=== PATIENT | female | born 1995 | race Caucasian/White ===

== ENCOUNTER 2019-01-14 15:32 | Emergency (ER) | payer OTHER ==
[~2019-01-14] VITALS: Ht 152.4 cm; Wt 47.7 kg
[2019-01-14 15:39] VITALS: BP 131/82
[2019-01-14] MEDS: IBUPROFEN 600 MG TABLET PO ONE (16:22)
[2019-01-14] MEDS: ACETAMINOPHEN 500 MG TABLET PO ONE (16:22)
== END 2019-01-14 17:35 | disposition home or self-care (01) ==
LOC: EMS 15:38
DX: J02.9 Acute pharyngitis, unspecified (principal); R59.9 Enlarged lymph nodes, unspecified; Z88.0 Allergy status to penicillin

== ENCOUNTER 2019-01-30 20:16 | Emergency (ER) | payer OTHER ==
[~2019-01-30] VITALS: Ht 152.4 cm; Wt 46.8 kg
[2019-01-30 20:47] LABS: APPEARANCE,URINE CLOUDY (CLEAR); BILIRUBIN,URINE NEGATIVE (NEGATIVE); GLUCOSE, URINE (UA) NEGATIVE (NEGATIVE); KETONES,URINE NEGATIVE (NEGATIVE); LEUKOCYTE ESTERASE ,URINE MODERATE (NEGATIVE); NITRATE,URINE NEGATIVE (NEGATIVE); OCCULT BLOOD,URINE LARGE (NEGATIVE); PH,URINE 5.5 (5.0-8.0); PROTEIN,URINE NEGATIVE (NEGATIVE); UROBILINOGEN,URINE 0.2 mg/dL (<=1.0)
[2019-01-30 21:40] LABS: BACTERIA,URINE Moderate /HPF (None Seen); SQUAMOUS EPITHELIAL CELL,UR Moderate /LPF (None Seen)
[2019-01-30 23:10] VITALS: BP 136/74
== END 2019-01-30 23:20 | disposition home or self-care (01) ==
LOC: EMS 20:17
DX: B37.3 Candidiasis of vulva and vagina (principal); N39.0 Urinary tract infection, site not specified; Z88.0 Allergy status to penicillin
CPT/HCPCS: 87086; 87210; 87491; 87591

== ENCOUNTER 2019-02-04 09:53 | Emergency (ER) | payer OTHER ==
[~2019-02-04] VITALS: Ht 152.4 cm; Wt 46.8 kg
[2019-02-04 10:01] VITALS: BP 98/64
== END 2019-02-04 12:16 | disposition left against medical advice (07) ==
LOC: EMS 09:55
DX: Z00.00 Encounter for general adult medical examination without abnormal findings (principal); Z53.21 Procedure and treatment not carried out due to patient leaving prior to being seen by health care provider

== ENCOUNTER 2019-03-01 10:37 | Emergency (ER) | payer OTHER ==
[~2019-03-01] VITALS: Ht 152.4 cm; Wt 47.3 kg
[2019-03-01] MEDS ORDERED: FLUORESCEIN SODIUM 1 MG STRIP OD ONE (12:15)
[2019-03-01] MEDS ORDERED: TETRACAINE HCL VISCOUS 0.5% 5 ML OPHTHALMIC SOLUTION OD ONE (12:15)
[2019-03-01] MEDS ORDERED: TETRACAINE HCL VISCOUS 0.5% 0.6 ML OPHTHALMIC SOLUTION OD ONE (12:45)
[2019-03-01 12:52] VITALS: BP 136/85
[2019-03-01] MEDS ORDERED: NEOMYCIN/BACITRACIN/POLYMYXIN/HYDROCORT 3.5 GM OPHTHALMIC OINTMENT OD ONE (13:45)
== END 2019-03-01 14:33 | disposition home or self-care (01) ==
LOC: EMS 10:37
DX: H11.89 Other specified disorders of conjunctiva (principal); Z88.0 Allergy status to penicillin

== ENCOUNTER 2019-03-10 15:54 | Emergency (ER) | payer OTHER ==
[~2019-03-10] VITALS: Ht 152.4 cm; Wt 47.5 kg
[2019-03-10] MEDS: PROPARACAINE HCL 0.5% 15 ML OPHTHALMIC SOLUTION OS ONE (17:09)
[2019-03-10] MEDS: FLUORESCEIN SODIUM 1 MG STRIP OU ONE (17:09)
[2019-03-10 17:43] VITALS: BP 119/69
== END 2019-03-10 17:46 | disposition home or self-care (01) ==
LOC: EMS 15:55
DX: T15.92XA Foreign body on external eye, part unspecified, left eye, initial encounter (principal); Z88.0 Allergy status to penicillin; X58.XXXA Exposure to other specified factors, initial encounter; Y93.89 Activity, other specified; Y92.89 Other specified places as the place of occurrence of the external cause; Y99.8 Other external cause status
CPT/HCPCS: 65222